=== PATIENT | male | born 1965 | race Caucasian/White ===

== ENCOUNTER 2022-10-23 10:21 | Inpatient (IN) | payer OTHER ==
[2022-10-23 10:36] VITALS: BMI 23.6
[2022-10-23] MEDS ORDERED: ACETAMINOPHEN 325 MG TABLET (FP) PO PRN (11:31)
[2022-10-23] MEDS ORDERED: MAGNESIUM HYDROX 2400MG/30ML ORAL SUSPENSION 30 ML CUP PO PRN (11:31)
[2022-10-23] MEDS ORDERED: NALOXONE HCL (KLOXXADO) 8 MG SPRAY NS PRN (11:31)
[2022-10-23] MEDS ORDERED: MAG HYDROX/AL HYDROX/SIMETH 30 ML UNIT-DOSE CUP PO PRN (11:31)
[2022-10-23] MEDS ORDERED: DICYCLOMINE HCL 10 MG CAPSULE PO PRN (11:31)
[2022-10-23] MEDS ORDERED: NALOXONE HCL 0.4 MG/ML VIAL IM PRN (11:31)
[2022-10-23] MEDS ORDERED: LOPERAMIDE HCL 2 MG CAPSULE PO PRN (11:31)
[2022-10-23] MEDS ORDERED: NICOTINE 10 MG CARTRIDGE (INHALER) IH PRN (11:31)
[2022-10-23] MEDS ORDERED: BENZOCAINE/MENTHOL (CHLORASEPTIC ) LOZENGE MM PRN (11:31)
[2022-10-23] MEDS ORDERED: BISMUTH SUBSALICYLATE 262 MG/15 ML BTL PO PRN (11:31)
[2022-10-23] MEDS ORDERED: IBUPROFEN 400 MG TABLET (FP) PO PRN (11:31)
[2022-10-23] MEDS ORDERED: guaiFENesin 600 MG TABLET.ER (FP) PO PRN (11:31)
[2022-10-23] MEDS ORDERED: POLYETHYLENE GLYCOL (HEALTHYLAX) 3350 17 GM PACKET PO PRN (11:31)
[2022-10-23] MEDS ORDERED: ONDANSETRON *ODT* 4 MG TABLET SL PRN (11:31)
[2022-10-23] MEDS ORDERED: BENZONATATE 200 MG CAPSULE PO PRN (11:31)
[2022-10-23] MEDS ORDERED: LORazepam 1 MG TABLET PO PRN (11:31)
[2022-10-23] MEDS ORDERED: IBUPROFEN 600 MG TABLET (FP) PO PRN (11:31)
[2022-10-23] MEDS: LORazepam 2 MG TABLET PO SCH ×3 (11:52→22:27)
[2022-10-23] MEDS: PRENATAL VITAMINS W/ FOLIC ACID TABLET (FP) PO SCH (11:52)
[2022-10-23] MEDS: BUPRENORPHINE/NALOXONE 8 MG/2 MG FILM PACKET SL SCH ×2 (14:36→22:30)
[2022-10-23 18:50] LABS: HEMATOCRIT 35.1 % (35.4-49); HEMOGLOBIN 12.1 GM/dL (11.7-16.9); MCH 30.1 pg (25.7-33.7); MCHC 34.4 g/dl (32.0-35.9); MEAN CELL VOLUME 87.5 fl (80-96); MEAN PLT VOLUME 8.8 fl (7.5-11.1); PLATELET COUNT 199 10^3/uL (134-434); RBC 4.01 M/mm3 (4.00-5.60); RDW 13.2 % (11.9-15.9); WHITE BLOOD COUNT 5.4 K/mm3 (4.0-10.0)
[2022-10-23 19:04] LABS: CALCIUM 8.8 mg/dL (8.5-10.1)
[2022-10-23 19:05] LABS: ALBUMIN 3.6 g/dl (3.4-5.0); BLOOD UREA NITROGEN 18.4 mg/dL (7-18)
[2022-10-23 19:10] LABS: BILIRUBIN,TOTAL 0.6 mg/dL (0.2-1); TOT PROT 6.6 g/dl (6.4-8.2)
[2022-10-23] MEDS: ATORVASTATIN CA 20 MG TABLET (FP) PO SCH (22:27)
[2022-10-23] MEDS: THIAMINE HCL 100 MG TABLET (FP) PO SCH (22:27)
[2022-10-23] MEDS: MELATONIN 5 MG TABLETS PO SCH (22:29)
[2022-10-24] MEDS: LORazepam 2 MG TABLET PO SCH ×4 (05:43→22:30)
[2022-10-24] MEDS: BUPRENORPHINE/NALOXONE 8 MG/2 MG FILM PACKET SL SCH ×3 (05:43→22:29)
[2022-10-24] MEDS: hydrOXYzine PAMOATE 25 MG CAPSULE (FP) PO PRN (10:18)
[2022-10-24] MEDS: TAMSULOSIN HCL 0.4 MG CAP PO SCH (10:18)
[2022-10-24] MEDS: PRENATAL VITAMINS W/ FOLIC ACID TABLET (FP) PO SCH (10:18)
[2022-10-24] MEDS: LACTULOSE 20 GM/30 ML UDC (FOR ORAL USE ONLY) PO SCH ×4 (10:18→22:29)
[2022-10-24] MEDS: METHOCARBAMOL 500 MG TABLET PO PRN (10:18)
[2022-10-24] MEDS: SOFOSBUVIR VELPATASVIR PO SCH (10:20)
[2022-10-24] MEDS: ATORVASTATIN CA 20 MG TABLET (FP) PO SCH (22:30)
[2022-10-24] MEDS: MELATONIN 5 MG TABLETS PO SCH (22:30)
[2022-10-24] MEDS: THIAMINE HCL 100 MG TABLET (FP) PO SCH (22:30)
[2022-10-25] MEDS: BUPRENORPHINE/NALOXONE 8 MG/2 MG FILM PACKET SL SCH ×3 (05:54→22:04)
[2022-10-25] MEDS: LORazepam 1 MG TABLET PO SCH ×4 (05:54→22:05)
[2022-10-25] MEDS: TAMSULOSIN HCL 0.4 MG CAP PO SCH (10:32)
[2022-10-25] MEDS: LACTULOSE 20 GM/30 ML UDC (FOR ORAL USE ONLY) PO SCH ×4 (10:32→22:05)
[2022-10-25] MEDS: PRENATAL VITAMINS W/ FOLIC ACID TABLET (FP) PO SCH (10:32)
[2022-10-25] MEDS: METHOCARBAMOL 500 MG TABLET PO PRN (10:32)
[2022-10-25] MEDS: SOFOSBUVIR VELPATASVIR PO SCH (10:34)
[2022-10-25] MEDS: ATORVASTATIN CA 20 MG TABLET (FP) PO SCH (22:04)
[2022-10-25] MEDS: THIAMINE HCL 100 MG TABLET (FP) PO SCH (22:04)
[2022-10-25] MEDS: MELATONIN 5 MG TABLETS PO SCH (22:05)
[2022-10-26] MEDS ORDERED: LORazepam 0.5 MG TABLET PO PRN
[2022-10-26] MEDS: LORazepam 0.5 MG TABLET PO SCH ×4 (05:22→22:14)
[2022-10-26] MEDS: BUPRENORPHINE/NALOXONE 8 MG/2 MG FILM PACKET SL SCH ×3 (05:22→22:13)
[2022-10-26] MEDS: TAMSULOSIN HCL 0.4 MG CAP PO SCH (10:24)
[2022-10-26] MEDS: PRENATAL VITAMINS W/ FOLIC ACID TABLET (FP) PO SCH (10:24)
[2022-10-26] MEDS: METHOCARBAMOL 500 MG TABLET PO PRN (10:24)
[2022-10-26] MEDS: SOFOSBUVIR VELPATASVIR PO SCH (10:25)
[2022-10-26] MEDS: THIAMINE HCL 100 MG TABLET (FP) PO SCH (22:14)
[2022-10-26] MEDS: ATORVASTATIN CA 20 MG TABLET (FP) PO SCH (22:14)
[2022-10-26] MEDS: MELATONIN 5 MG TABLETS PO SCH (22:15)
[2022-10-27] MEDS ORDERED: LORazepam 0.5 MG TABLET PO ONE (05:00)
[2022-10-27] MEDS: BUPRENORPHINE/NALOXONE 8 MG/2 MG FILM PACKET SL SCH (05:21)
[2022-10-27] MEDS: PRENATAL VITAMINS W/ FOLIC ACID TABLET (FP) PO SCH (09:12)
[2022-10-27] MEDS: hydrOXYzine PAMOATE 25 MG CAPSULE (FP) PO PRN (09:12)
[2022-10-27] MEDS: TAMSULOSIN HCL 0.4 MG CAP PO SCH (09:12)
[2022-10-27] MEDS: SOFOSBUVIR VELPATASVIR PO SCH (09:15)
[2022-10-27 09:32] VITALS: BP 109/73; PULSE 74; RESP 18; TEMP 97.6
== END 2022-10-27 09:38 | disposition home or self-care (01) | DRG 773 ==
LOC: YASAS 10:21 → Y6N 12:09
PROVIDERS: ADMIT Allergy & Immunology; ATTEND Surgery
PROC: HZ2ZZZZ Detoxification Services for Substance Abuse Treatment (ICD-10-PCS; principal; 2022-10-23)
DX: F10.230 Alcohol dependence with withdrawal, uncomplicated (principal); F11.20 Opioid dependence, uncomplicated; F14.20 Cocaine dependence, uncomplicated; F12.20 Cannabis dependence, uncomplicated; F17.210 Nicotine dependence, cigarettes, uncomplicated; E78.5 Hyperlipidemia, unspecified; N40.0 Benign prostatic hyperplasia without lower urinary tract symptoms; R79.89 Other specified abnormal findings of blood chemistry; Z86.19 Personal history of other infectious and parasitic diseases
CPT/HCPCS: 36415; 80053; 82140; 85027; 86780; 87811; 93005; 93010; C9803-CS; U0003; U0005